=== PATIENT | female | born 1960 | race Caucasian/White ===

== ENCOUNTER 2016-12-28 18:09 | Emergency (ER) | payer OTHER ==
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
== END 2016-12-28 20:05 | disposition home or self-care (01) ==
LOC: ER 18:09
DX: S70.02XA Contusion of left hip, initial encounter (principal); I10 Essential (primary) hypertension; Z88.0 Allergy status to penicillin; Z79.899 Other long term (current) drug therapy; V49.29XA Unspecified car occupant injured in collision with other motor vehicles in nontraffic accident, initial encounter